=== PATIENT | male | born 1955 | race Caucasian/White ===

== ENCOUNTER → 2016-09-01 | Outpatient (CLI) | payer OTHER ==
[~2016-09-01] MED LIST: CMD3 PO; IBUP-1050 PO; IBUP-1459 PO; JUICE PLUS GUMMIES PO; LOVENOX; MULT-506 PO; PANT40TA PO; PRLSR20 PO; WARF5TAB7 PO
--- NOTE | 2016-09-01 09:31 | DIAGNOSTIC IMAGING REPORT ---
CT OF THE CHEST WITHOUT IV CONTRAST CLINICAL HISTORY: Interstitial lung disease. Follow-up study. COMPARISON STUDY: Chest CT February 19, 2016. CT DOSE: 252.15 mGy.cm TECHNIQUE: Axial images of the chest were obtained without IV contrast. Images were reviewed in the axial, sagittal, and coronal planes. IV contrast was not administered for this examination. FINDINGS: The size of the heart is normal. No pericardial effusion. A moderately large subcarinal lymph node measuring 1.8 cm in short axis diameter is similar to chest CT of February 19, 2016. The prominent hilar nodes shown on prior exam are not well visualized on this unenhanced exam. There is lower lobe predominant groundglass opacity with traction bronchiectasis. Note is made of a 3.3 x 1.2 cm subpleural irregular density within the posterior basilar segment of the right lower lobe shown on image 268 of 331. This has slightly increased in size since CT of February 19, 2016 when it measured 2.8 x 0.9 cm. There are calcifications within this abnormality. There is associated apparent bronchial occlusion. There are scattered additional tiny nodules which are similar to prior exam. No suspicious osseous lesions are present. There is a 1.2 cm cyst within the upper pole of the right kidney. Mild esophageal dilatation is unchanged. IMPRESSION: 1. Mild increase in size of the 3.3 x 1.2 cm subpleural irregular opacity within the right lower lobe since CT of February 19, 2016. While indeterminate, the interval growth raises the possibility of a neoplasm and is the diagnosis of exclusion. An organizing pneumonia or atelectasis is within the differential. Tissue sampling is recommended. 2. No change in size of a moderately enlarged subcarinal lymph node. This could be related to interstitial lung disease but is indeterminate. 3. Lower lobe predominant groundglass opacity with traction bronchiectasis consistent with interstitial lung disease. This suggests a NSIP pattern. Slight progression since exam of February 19, 2016. This finding, in conjunction with esophageal dilatation, raises the possibility of scleroderma. Electronically signed by: Quan Menchaca M.D. 09/01/2016 9:29 AM Dictated Date/Time: 09/01/2016 8:58 AM
== END | disposition home or self-care (01) ==
LOC: C.CTS 08:47
PROVIDERS: ATTEND Internal Medicine Pulmonary Disease
DX: J84.9 Interstitial pulmonary disease, unspecified (principal)

== ENCOUNTER → 2016-10-06 | Outpatient (CLI) | payer OTHER ==
--- NOTE | 2016-10-06 09:30 | DIAGNOSTIC IMAGING REPORT ---
(BARIUM SWALLOW) ESOPHAGUS CLINICAL HISTORY: DYSPHAGIA COMPARISON STUDY: None. FLUOROSCOPY TIME: 0.8 minutes. 11 images submitted. FINDINGS: The patient aspirated during the initial swallows of barium. Therefore, the study was terminated early. The esophagus appears to be normal in course and caliber. No hiatus hernia. The contours of the hypopharynx were not well evaluated. IMPRESSION: The study was terminated early due to aspiration of barium during the examination. Recommend follow-up video swallow for further evaluation. Electronically signed by: Yunior Estrada M.D. 10/06/2016 9:28 AM Dictated Date/Time: 10/06/2016 9:27 AM
== END | disposition home or self-care (01) ==
LOC: C.RAD 08:33
PROVIDERS: ATTEND Physician Assistant
DX: R13.10 Dysphagia, unspecified (principal)

== ENCOUNTER → 2016-10-18 | Outpatient (CLI) | payer OTHER ==
--- NOTE | 2016-10-18 12:41 | DIAGNOSTIC IMAGING REPORT ---
PET/CT SKULL-THIGH CLINICAL HISTORY: PULMONARY NODULE COMPARISON STUDY: Chest CT dated 09/01/2016 FINDINGS: The patient was injected with 10.3 mCi of F-18 labeled FDG. Findings standard induction phase, PET/CT scanning was performed from the skull base the upper thigh region. Activity within neck is felt to be physiologic. With the chest, there is an FDG avid 2 cm left paratracheal lymph node with an SUV maximum of 2.8. There is an FDG avid right paratracheal lymph node with SUV maximum of 3. There is an FDG avid 17 mm subcarinal lymph node with SUV maximum of 3.5. The recently described 3.3 x 1.2 cm right lower lobe pleural-based opacity is minimally FDG avid with SUV maximum of 2.2. The patient's lower lobe groundglass dependent opacities are also mildly FDG avid. Within the abdomen and pelvis, there is physiologic urinary tract and bowel activity. There is no FDG avid hepatic or adrenal masses. There is no FDG avid lymphadenopathy. There are no suspicious FDG avid skeletal lesions. IMPRESSION: 1. Mildly FDG avid mediastinal lymphadenopathy, demonstrating SUV maximum of up to 3.5. These could be either inflammatory or neoplastic. 2. Minimally FDG avid 3 cm right lower lobe pleural-based opacity with SUV maximum of 2.2. This could be either inflammatory or neoplastic. 3. Lower lung zone dependent interstitial lung disease which is minimally FDG avid 4. No evidence of pathologic FDG activity within the abdomen or pelvis Electronically signed by: Chaitanya Zhao M.D. 10/18/2016 12:40 PM Dictated Date/Time: 10/18/2016 12:29 PM
== END | disposition home or self-care (01) ==
LOC: C.PET 08:31
PROVIDERS: ATTEND Physician Assistant
DX: R91.1 Solitary pulmonary nodule (principal)

== ENCOUNTER → 2016-10-21 | Outpatient (CLI) | payer OTHER ==
--- NOTE | 2016-10-21 13:17 | DIAGNOSTIC IMAGING REPORT ---
VIDEO SWALLOW HISTORY: Aspiration DYSPHASIA TECHNIQUE: Video fluoroscopic evaluation of swallowing was performed in the AP and lateral projections by the speech pathology staff. The patient is fed nectar-thick and thin liquid barium, a barium coated wafer, and barium pudding. FLUOROSCOPY TIME: 4 minutes. COMPARISON STUDY: 10/06/2016 FINDINGS: Moderate oral and hypopharyngeal dysmotility. Trace amount of penetration/thicker liquids. Aspiration with thicker liquids. No significant aspiration with thin liquids. IMPRESSION: 1. Slightly improved exam compared to the prior study. Trace aspiration with thicker liquids. 2. Please see the speech pathologist report for detailed findings and recommendations. Electronically signed by: Jaime Sams M.D. 10/21/2016 1:16 PM Dictated Date/Time: 10/21/2016 1:13 PM
--- NOTE | 2016-10-21 16:26 | SWALLOWING EVALUATION ---
HISTORY: This 61 year-old man was referred for a VFSS at [facility] after aspirating during a barium swallow on 10/06/2016 in order to rule out aspiration. The patient has a PMH significant for CREST syndrome, acute pericarditis, DVT, scleroderma, and Raynaud's disease. Currently the patient's diet level is regular. Patient reported needing to alternate bites of food with liquids and can feel the liquids helping to clear food from his esophagus. He reported to have more difficulty with certain items (e.g., hamburger) and stated that these problems have been increasing over the last twenty years. PROCEDURE: The patient was seen in the Radiology Department of [facility] for the VFSS. Cursory examination of the oral cavity revealed upper dentures and lower implants. Movement of the articulators was WNL. The patient was seated on a stool and was viewed in both the Anterior-Posterior (A-P) and Lateral planes. Volitional phonation exercises completed in the A-P plane revealed bilateral vocal fold movement and vocal intensity within functional limits. In the lateral plane, the patient was given the following boluses: 1 tsp. thin liquid barium x 2, single swallow thin liquid barium self-presented from a cup x2, 1 tsp. nectar-thick liquid barium, single swallow nectar-thick liquid barium self-presented from a cup, 1 tsp. barium pudding, and 1 club cracker with barium pudding. The patient was then repositioned into the A-P plane and given the following boluses: 1 tsp. nectar-thick liquid barium and 1 tsp. barium pudding. RESULTS: Oral Stage: There was no labial escape. There was adequate tongue control holding the bolus between the tongue and palatal seal. Mastication was disorganized with pieces of bolus un-chewed. There was delayed initiation of tongue motion, but once it started the bolus was swallowed normally. At the initiation of pharyngeal swallow, bolus head was at the level of the valleculae. After first swallow, there was a collection of residue on the oral structures (along the tongue and palate). Multiple swallows were required to clear bolus orally. Pharyngeal Stage: Soft palate elevation was adequate. There was partial superior movement of thyroid cartilage/partial approximation of arytenoids to epiglottic petiole. There was partial anterior movement of the hyoid. There was partial inversion of the epiglottis which did not progress past the horizontal position. Laryngeal vestibular closure was incomplete, with a narrow column of contrast located in the vestibule at the height of the swallow. Pharyngeal stripping wave was diminished and pharyngeal contraction was incomplete. There was partial distention/duration of the PES opening. Tongue base retraction was inadequate with a wide column of contrast between tongue base and posterior wall. There was a majority of contrast within or on pharyngeal structures (valleculae) after the swallow. Patient aspirated small amounts and penetrated thin and nectar thick liquids. He presented with a sensory response in the form of a light throat clear. This appeared to be effective in clearing the aspiration. However, He is at high risk for aspiration due to impaired laryngeal elevation, hyoid excursion, epiglottic movement, tongue base retraction, and inadequate laryngeal closure. Approximately four swallows were required to clear residue from the valleculae. A chin tuck was attempted to aid in tongue base retraction and laryngeal closure, however, patient then struggled to move the bolus towards the posterior oral cavity. Chin tuck is considered to be ineffective for improving swallow. A liquid wash was used to clear bolus residue from the oral and pharyngeal cavities. This cleared some of the pharyngeal residue, but not all. Esophageal Stage: There was mild distal esophageal retention. SUMMARY/RECOMMENDATIONS: This patient presents with moderate oral-pharyngeal dysphagia characterized by penetration of thin and nectar thick liquids with scant amounts of aspiration. The patient, however, appears to be tolerating the aspiration (prior to this episode) and is active. In addition, the patient presents with s/s esophageal dysfunction. The following is recommended: 1. Dental soft, Slippery diet: Choose foods that are loose (low viscosity), moist, and slippery. Avoid foods that are dry, thick, pasty, and doughy. Use condiments as needed to make food slippery 2. Aspiration precautions: patient should be seated upright during and 30 minutes after meals. No straws. HOB elevated to at least 30 degrees at all times, to include while asleep. Alternate bites of food and sips of liquid. 3. Stringent oral care to include brushing all of the surfaces of the mouth and tongue, prior to and after meals. Also complete oral care prior to bed. This will reduce the amount of oral bacteria that can be aspirated in saliva. 4. Patient may benefit from outpatient speech therapy for swallowing exercises, and further education/training as needed on diet and safe swallow strategies. Rehab potential is guarded. A summary of the results and recommendations was discussed with patient and understanding was verbalized with the patient immediately following the study. Verbal and written education was provided regarding a slippery diet, with verbal understanding as well. Thank you for referral of this patient. Please contact me at if any additional information is needed. Lizzie Caicedo B.A. [employer] Clinician
== END | disposition home or self-care (01) ==
LOC: C.RAD 11:07
PROVIDERS: ATTEND Physician Assistant
DX: R13.10 Dysphagia, unspecified (principal)

== ENCOUNTER → 2017-04-05 | Day surgery (SDC) | payer OTHER ==
[2017-03-28 14:17] VITALS: BMI 19.0
[2017-03-28 14:40] LABS: BASO % 0.2 %; BASO ABS # 0.03 K/uL (0-0.2); COMPLETE YES; EOS % 2.1 %; HEMATOCRIT 37.4 % (42-52); IG% 0.3 %; LYMPH % 12.2 %; LYMPH ABS # 1.53 K/uL (1.2-3.4); MEAN CELL VOLUME 87.6 fL (80-100); MEAN CORPUSCULAR HEMOGLOBIN 29.3 pg (25-34); MEAN CORPUSCULAR HGB CONC 33.4 g/dl (32-36); MEAN PLATELET VOLUME 9.4 fL (7.4-10.4); NEUT % 74.2 %; PLATELET COUNT 496 K/uL (130-400); RED BLOOD COUNT 4.27 M/uL (4.7-6.1); WHITE BLOOD COUNT 12.51 K/uL (4.8-10.8)
[2017-03-28 14:50] LABS: INR 1.7 (0.9-1.1); PARTIAL THROMBOPLASTIN RATIO 1.4; PROTHROMBIN TIME (PATIENT) 18.1 SECONDS (9.0-12.0)
--- NOTE | 2017-03-28 15:04 | PAT Medication Instructions ---
Service Date Mar 28, 2017. Current Home Medication List Ibuprofen (Motrin), 400 MG PO HS PRN for Pain Omeprazole (Prilosec), 20 MG PO BID Warfarin Sod (Jantoven), 5 MG PO HS [Juice Plus Gummies ], 1 DOSE PO UD Medication Instructions For Your Scheduled Surgery -Contact your surgeon for instructions for: Ibuprofen (Motrin), 400 MG PO HS PRN for Pain - Contact your prescriber for instructions for: Warfarin Sod (Jantoven), 5 MG PO HS - Hold the following medications the morning of surgery: [Juice Plus Gummies ], 1 DOSE PO UD - Take the following medications the morning of surgery with a sip of water: Omeprazole (Prilosec), 20 MG PO BID - Take the following medications as scheduled the night before surgery: Omeprazole (Prilosec), 20 MG PO BID If you have any questions please call us at [phone] or [phone] or [phone]
[2017-03-28 16:45] LABS: BUN/CREATININE RATIO 23.2 (10-20); CALCIUM 8.7 mg/dl (8.5-10.1); CREATININE 0.9 mg/dl (0.60-1.40); POTASSIUM 4.5 mmol/L (3.5-5.1)
[~2017-04-05] VITALS: Ht 180.3 cm; Wt 64.7 kg
[~2017-04-05] MED LIST changes: +ARTIFICIAL TEARS OP OINT 3.5 GM TUBE ONE; +ATROPINE SULFATE 0.1 MG/ML 5ML SYR IV PRN; -CMD3 PO; +DEXAMETHASONE SOD INJ 4 MG/ML VIAL ONE; +EpHEDrine SULFATE 50MG/5ML SYR ONE; +EpHEDrine SULFATE INJ 50 MG/ML AMP IV PRN; +FENTANYL CITRATE INJ 50 MCG/1 ML 2 ML VIAL IV PRN; +FENTANYL CITRATE INJ 50 MCG/1 ML 2 ML VIAL ONE; +GLYCOPYRROLATE INJ 0.2 MG/ML VIAL ONE; -IBUP-1050 PO; +LACTATED RINGER'S 1000ML 1,000 ML IV SCH; +LIDOCAINE HCL 2% 2 ML VIAL (20MG/ML) ONE; +MIDAZOLAM HCL 1 MG/ML 2ML VIAL ONE; -MULT-506 PO; +NEOSTIGMINE METHYLSULFATE 5 MG/5 ML SYR ONE; +ONDANSETRON INJ 2 MG/ML 2 ML VIAL IV PRN; +ONDANSETRON INJ 2 MG/ML 2 ML VIAL ONE; -PANT40TA PO; +PROPOFOL IV EMULSION 10 MG/ML 20 ML VIAL IV ONE; +ROCURONIUM BROMIDE 10 MG/ML 5 ML VIAL IV ONE
--- NOTE | 2017-04-05 07:03 | History and Physical ---
History & Physical Date of Service Apr 05, 2017. History & Physical Reason for visit: EBUS w/ ENB HPI: Patient is a 61-year-old male presenting to [facility] today for EBUS w/ENB. The patient has history of scleroderma/interstitial lung disease with multiple pulmonary infiltrates/nodules. The patient is suspected to have possible chronic aspiration and reactive mediastinal adenopathy secondary to scleroderma , but ultimately needs further evaluations in regards to large mediastinal adenopathy and changes in the bilateral lower lobes, especially the right lower lobe. His CT images were reviewed by me today. It is noted that he has progressive increase in size of a 3.9 x 1.5 cm irregular subpleural opacity within the posterior basilar segment of the right lower lobe. The interval growth was noted on radiographic analysis to be suspicious for neoplasm. Significant increase in size of the right paratracheal lymph node, mediastinal, and right hilar lymph nodes also were noted. Redemonstration of lower lobe prominent ground-glass opacities, bronchiectasis, and esophageal dilatation were also noted which likely are consistent with the patient's history of scleroderma. PFT's were completed on 03/23/2016: FVC was 3.92/78% predicted FEV1 2.95/78% predicted FEV1/FVC ratio 75% TLC 0.74/92% predicted DLCOunc 55% predicted DL/VA 3.65/74% predicted no significant change with bronchodilator administration Past medical history: Acute osteomyelitis of the hand, aspiration, dysphagia, interstitial lung disease, mediastinal lymphadenopathy, MRSA, pulmonary nodule, scleroderma, crest syndrome, DVT, malignant neoplasm of the skin, Raynaud's Past surgical history: Cardiac catheterization, sinus surgery Social history: Never smoker Allergies: Bactrim Current medications: Omeprazole 20 mg twice daily Warfarin Physical exam: General: Patient is awake, alert, cooperative, and in no acute distress. HEENT: Normocephalic and atraumatic. Eyes are anicteric and non-erythematous. EOMI c PERRLA. Hearing intact and without difficulty. Nose appears normal and without drainage. Trachea midline. Thyroid appears normal, and neck is supple. Lungs: No respiratory distress. No accessory muscle use. Heart: Regular rate and rhythm. Musculoskeletal: Gait normal and without difficulty. Freely moving extremities during exam. Neuro: Alert. CN II-XII grossly intact. Sensation and motor function grossly intact. Assessment and plan: Right lower lobe subpleural opacity, mediastinal, hilar, and paratracheal lymphadenopathy, and bronchiectasis. Plan for EBUS w/ENB today for further evaluation of these findings.
[2017-04-05 08:11] VITALS: BP 109/69; TEMP 36.6; Ht 180.3 cm; Wt 64.7 kg
[2017-04-05 08:37] LABS: INR 1.1 (0.9-1.1); PARTIAL THROMBOPLASTIN RATIO 1.2; PROTHROMBIN TIME (PATIENT) 12.1 SECONDS (9.0-12.0)
--- NOTE | 2017-04-05 10:15 | History & Physical Bridge Note ---
H&P Re-Evaluation Bridge Note: I have examined the patient, reviewed the History & Physical and in the interval since the performance of the History & Physical I have noted the following changes of clinical significance: No changes noted
--- NOTE | 2017-04-05 11:35 | Discharge Instructions ---
Discharge Instructions Date of Service Apr 05, 2017. 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 Current Hospital Diet Patient's current hospital diet: Discharge Diet Recommended Diet: Regular Diet Procedures Procedures Performed: Flexible Bronchoscopy Endobronchial ultrasound, , Trans-tracheal/bronchial Needle Aspiration, Bronchial Lavage, Pending Studies Studies pending at discharge: no Medical Emergencies . Who to Call and When: Medical Emergencies: If at any time you feel your situation is an emergency, please call 911 immediately. . Non-Emergent Contact Non-Emergency issues call your: Electorate Officer . . "Provider Documentation" section prepared by Gerson Zamarripa. . VTE Core Measure Inpt VTE Proph given/why not?: Treatment not indicated
--- NOTE | 2017-04-05 12:21 | Anesthesiology Progress Note ---
Anesthesia Post Op Note Date & Time Apr 05, 2017 at 12:21 Vital Signs Pain Intensity: 0 Vital Signs Past 12 Hours Date Time Temp Pulse Resp B/P (MAP) Pulse Ox O2 Delivery O2 Flow Rate FiO2 04/05/17 12:07 90 24 100 04/05/17 12:07 92 24 04/05/17 12:06 88/62 04/05/17 12:02 93 23 100 04/05/17 12:02 95 23 04/05/17 12:01 91/59 04/05/17 11:58 97 23 04/05/17 11:58 94 23 100 04/05/17 11:56 82/51 04/05/17 11:54 90/49 04/05/17 11:53 100 25 04/05/17 11:53 96 25 100 04/05/17 11:51 82/55 04/05/17 11:48 86 26 04/05/17 11:48 102 26 87/54 99 04/05/17 11:45 89/60 04/05/17 11:44 36.6 106 16 89/60 98 Oxymask 10 04/05/17 08:11 36.6 18 109/69 (82) Room Air Notes Mental Status: alert / awake / arousable, participated in evaluation Pt Amnestic to Procedure: Yes Nausea / Vomiting: adequately controlled Pain: adequately controlled Airway Patency, RR, SpO2: stable & adequate BP & HR: stable & adequate Hydration State: stable & adequate Anesthetic Complications: no major complications apparent
[2017-04-05 12:30] VITALS: BP 91/57; PULSE 91; TEMP 36.7; O2SAT 94
[2017-04-05 13:00] VITALS: BP 98/64; PULSE 104; O2SAT 91
[2017-04-05 13:30] VITALS: BP 107/65; PULSE 94; TEMP 36.5; O2SAT 91
--- NOTE | 2017-04-13 19:06 | Bronchoscopy Procedure Note ---
Bronchoscopy Procedure Note Procedure: Flexible-Bronchoscopy, EBUS, ENB, FNA,BAL Consent: Obtained through the patient placed into the chart Pre-Procedural Dx: Post-Procedural Dx: Analgesia: GETA Sedation: GETA Procedure: The Olympus video bronchoscope and EBUS scope were used for this procedure Initially the flexible bronchoscope was used for evaluation of the airways. An LMA Size ?? was used for this procedure and properly positioned Vocal Cords: Anatomically WNL Sub-Glottis & Trachea: Anatomically WNL Jeni: Anatomically within normal limits Right bronchial tree: Right mainstem bronchus: Anatomically within normal limits Right upper lobe: Anatomically within normal limits Bronchus intermedius: Anatomically within normal limits Right middle lobe: Anatomically within normal limits Right lower lobe: Anatomically within normal limits Findings: No significant findings noted Left bronchial tree: Left mainstem bronchus: Anatomically within normal limits Left upper lobe: Anatomically within normal limits Lingula: Anatomically within normal limits Left lower lobe: Anatomically within normal limits Findings: No significant findings noted EBUS/RASHIDA: FNA Alda Stations: 7: # of passes 4R: # of passes 4L: # of passes BAL: RLL EBL: none Complications: None Follow-up: PACU
== END | disposition home or self-care (01) ==
LOC: C.ACU 07:31
PROVIDERS: ATTEND Internal Medicine Critical Care Medicine
DX: C77.1 Secondary and unspecified malignant neoplasm of intrathoracic lymph nodes (principal); I73.00 Raynaud's syndrome without gangrene; Z88.1 Allergy status to other antibiotic agents; Z98.890 Other specified postprocedural states; Z86.718 Personal history of other venous thrombosis and embolism; Z85.828 Personal history of other malignant neoplasm of skin

== ENCOUNTER 2017-04-21 05:43 | Day surgery (SDC) | payer OTHER ==
[~2017-04-21] VITALS: Ht 180.3 cm; Wt 65.0 kg
[~2017-04-21 05:43] MED LIST changes: -ARTIFICIAL TEARS OP OINT 3.5 GM TUBE ONE; -ATROPINE SULFATE 0.1 MG/ML 5ML SYR IV PRN; -DEXAMETHASONE SOD INJ 4 MG/ML VIAL ONE; +ENOX60IN SQ; -EpHEDrine SULFATE 50MG/5ML SYR ONE; -EpHEDrine SULFATE INJ 50 MG/ML AMP IV PRN; -FENTANYL CITRATE INJ 50 MCG/1 ML 2 ML VIAL IV PRN; -FENTANYL CITRATE INJ 50 MCG/1 ML 2 ML VIAL ONE; -GLYCOPYRROLATE INJ 0.2 MG/ML VIAL ONE; -IBUP-1459 PO; -JUICE PLUS GUMMIES PO; -LACTATED RINGER'S 1000ML 1,000 ML IV SCH; -LIDOCAINE HCL 2% 2 ML VIAL (20MG/ML) ONE; -LOVENOX; -MIDAZOLAM HCL 1 MG/ML 2ML VIAL ONE; -NEOSTIGMINE METHYLSULFATE 5 MG/5 ML SYR ONE; -ONDANSETRON INJ 2 MG/ML 2 ML VIAL IV PRN; -ONDANSETRON INJ 2 MG/ML 2 ML VIAL ONE; -PROPOFOL IV EMULSION 10 MG/ML 20 ML VIAL IV ONE; -ROCURONIUM BROMIDE 10 MG/ML 5 ML VIAL IV ONE
[2017-04-21] MEDS ORDERED: LACTATED RINGER'S 1000ML 1,000 ML IV SCH (06:00)
[2017-04-21 06:18] VITALS: BP 115/71; PULSE 85; TEMP 36.8; O2SAT 94; Ht 180.3 cm; Wt 65.0 kg
[2017-04-21 06:33] LABS: INR 1.1 (0.9-1.1); PARTIAL THROMBOPLASTIN RATIO 1.2; PROTHROMBIN TIME (PATIENT) 11.4 SECONDS (9.0-12.0)
[2017-04-21] MEDS ORDERED: ATROPINE SULFATE 0.1 MG/ML 5ML SYR IV PRN (07:00)
[2017-04-21] MEDS ORDERED: FENTANYL CITRATE INJ 50 MCG/1 ML 2 ML VIAL IV PRN (07:00)
[2017-04-21] MEDS ORDERED: ONDANSETRON INJ 2 MG/ML 2 ML VIAL IV PRN (07:00)
[2017-04-21] MEDS ORDERED: EpHEDrine SULFATE INJ 50 MG/ML AMP IV PRN (07:00)
[2017-04-21] MEDS ORDERED: SUCCINYLCHOLINE CHLORIDE 20 MG/ML 10 ML VIAL IV ONE (07:11)
[2017-04-21] MEDS ORDERED: PHENYLEPHRINE HCL INJ 10 MG/ML VIAL ONE (07:11)
[2017-04-21] MEDS ORDERED: PROPOFOL IV EMULSION 10 MG/ML 20 ML VIAL IV ONE (07:11)
[2017-04-21] MEDS ORDERED: DEXAMETHASONE SOD INJ 4 MG/ML VIAL ONE (07:11)
[2017-04-21] MEDS ORDERED: GLYCOPYRROLATE INJ 0.2 MG/ML VIAL ONE (07:11)
[2017-04-21] MEDS ORDERED: NEOSTIGMINE METHYLSULFATE 5 MG/5 ML SYR ONE (07:11)
[2017-04-21] MEDS ORDERED: EpHEDrine SULFATE INJ 50 MG/ML AMP ONE (07:11)
[2017-04-21] MEDS ORDERED: LIDOCAINE HCL 2% 2 ML VIAL (20MG/ML) ONE (07:11)
[2017-04-21] MEDS ORDERED: MIDAZOLAM HCL 1 MG/ML 2ML VIAL ONE (07:11)
[2017-04-21] MEDS ORDERED: FENTANYL CITRATE INJ 50 MCG/1 ML 2 ML VIAL ONE (07:11)
[2017-04-21] MEDS ORDERED: ONDANSETRON INJ 2 MG/ML 2 ML VIAL ONE (07:11)
--- NOTE | 2017-04-21 07:20 | Endo History and Physical ---
History & Physical Date of Service: Apr 21, 2017. Chief Complaint: Scleroderma, GERD, Mediastinal RAMONA Referring Physician: Dr. Solano History of Present Illness 61 yo CM who presents for mediastinoscopy with Dr. Cruz and EGD with myself for Scleroderma, GERD and Mediastinal Lymphadenopathy and NSCLC. Past Surgical History Hx Cardiac Surgery: Yes (CARDIAC CATH NO STENTS-2010) Hx Abdominal Surgery: No Hx Post-Op Nausea and Vomiting: No Hx Cancer Surgery: No Hx Thoracic Surgery: No Hx Orthopedic: Yes (BUNIONECTOMY R FOOT ) Hx Urinary Tract Surgery: No Social History Smoking Status: Never Smoker Hx Substance Use: No Hx Alcohol Use: Yes ("HARDLY EVER" ) Allergies Coded Allergies: Sulfamethoxazole w/Trimethoprim (Verified Allergy, Intermediate, ANAPHYLAXIS, 04/21/17) Swollen lips Current Medications Reported Home Medications Medications Dose Route/Sig Max Daily Dose Days Date Category Dose Instructions Lovenox (Enoxaparin Sodium) 60 Mg/0.6 Ml Inj 60 Mg SQ Q12H 04/19/17 Reported WILL FOLLOW INSTRUCTIONS GIVEN BY [facility] Jantoven (Warfarin Sodium) 5 Mg Tab 5 Mg PO HS 03/28/17 Reported PT HAS INSTRUCTIONS TO BRIDGE TO LOVENOX PER [facility] Prilosec (Omeprazole) 20 Mg Capcr 20 Mg PO BID 03/28/17 Reported Vital Signs Weight (Kilograms): 65.00 Height (Feet): 5 Height (Inches): 11 Date Time Temp Pulse Resp B/P (MAP) Pulse Ox O2 Delivery O2 Flow Rate FiO2 04/21/17 06:18 36.8 85 18 115/71 (86) 94 Room Air Physical Exam General Appearance: + thin, + pertinent finding (chronic ill appearing) Respiratory/Chest: Respiratory effort: no dyspnea Auscultation: decreased breath sounds (at bilateral bases) Cardiovascular: Heart Auscultation: RRR Abdomen: Bowel Sounds: normal Inspection & Palpation: soft, non-distended Liver: no hepatomegaly Hernia: none palpable Assessment and Plan Assessment: 61 yo CM who presents for mediastinoscopy with Dr. Cruz and EGD with myself for Scleroderma, GERD and Mediastinal Lymphadenopathy and NSCLC. Plan: Proceed with EGD.
[2017-04-21] MEDS ORDERED: ULT/50 PO (08:12)
--- NOTE | 2017-04-21 08:17 | GI REPORT ---
Procedure Date: 04/21/2017 7:35 AM Procedure: Upper GI endoscopy Indications: Gastro-esophageal reflux disease, Scleroderma Medicines: General Anesthesia Complications: No immediate complications. Estimated Blood Loss: Estimated blood loss: none. Procedure: Pre-Anesthesia Assessment: - Prior to the procedure, a History and Physical was performed, and patient medications and allergies were reviewed. The patient's tolerance of previous anesthesia was also reviewed. The risks and benefits of the procedure and the sedation options and risks were discussed with the patient. All questions were answered, and informed consent was obtained. Prior Anticoagulants: The patient last took Coumadin (warfarin) 7 days and Lovenox (enoxaparin) 1 day prior to the procedure. ASA Grade Assessment: III - A patient with severe systemic disease. After reviewing the risks and benefits, the patient was deemed in satisfactory condition to undergo the procedure. After obtaining informed consent, the endoscope was passed under direct vision. Throughout the procedure, the patient's blood pressure, pulse, and oxygen saturations were monitored continuously. The Scope was introduced through the mouth, and advanced to the second part of duodenum. The upper GI endoscopy was accomplished without difficulty. The patient tolerated the procedure well. Findings: Mildly severe esophagitis with no bleeding was found. One mild benign-appearing, intrinsic stenosis was found. And was traversed. The stomach was normal. The examined duodenum was normal. Impression: - Mildly severe reflux esophagitis. - Benign-appearing esophageal stenosis. - Normal stomach. - Normal examined duodenum. - No specimens collected. Recommendation: - Proceed with planned mediastinoscopy surgery today. Yfn Barboza DO 04/21/2017 8:16:33 AM This report has been signed electronically. Note Initiated On: 04/21/2017 7:35 AM I attest to the content of the Intraoperative Record and orders documented therein, exceptions below
[2017-04-21] MEDS ORDERED: SURGICEL ABSORB HEMOSTAT 2IN X 14IN TOP ONE (08:47)
[2017-04-21] MEDS ORDERED: TRAMADOL HCL 50 MG TAB PO PRN (10:15)
--- NOTE | 2017-04-21 10:19 | Discharge Instructions ---
Discharge Instructions Date of Service Apr 21, 2017. Visit Reason for Visit: Mediastinal Lymphadenopathy Discharge Discharge Diagnosis / Problem: Mediastinal Lymphadenopathy Discharge Goals Goal(s): Learn about illness Activity Recommendations Activity Limitations: resume your previous activity (in 24 hours) [address] if taking ultram. Anesthesia . Post Anesthesia Instructions: If you have had General Anesthesia or IV Sedation: * Do not drive today. * Resume driving when surgeon permits. * Do not make important decisions or sign legal documents today. * Call surgeon for: 1. Temperature elevations greater than 101 degrees F. 2. Uncontrollable pain. 3. Excessive bleeding. 4. Persistent nausea and vomiting. 5. Medication intolerance (nausea, vomiting or rash). * For nausea and vomiting use only clear liquids such as: tea, soda, bouillon until nausea subsides, then gradually increase diet as tolerated. * If you have any concerns or questions, call your surgeon's office. If physician is unavailable and it is an emergency, call 911 or go to the nearest emergency room. . Instructions / Follow-Up Instructions / Follow-Up 1. Keep your scheduled appointment with Dr. Cruz on April 28 @ 1:30. Diet Recommendations Recommended Home Diet: resume previous diet Procedures Procedures Performed: 1.Esophagogastroduodenoscopy - 2.Video Mediastinoscopy with Biopsy - Pending Studies Studies pending at discharge: no Medical Emergencies . Who to Call and When: Medical Emergencies: If at any time you feel your situation is an emergency, please call 911 immediately. . Non-Emergent Contact Non-Emergency issues call your: Surgeon Call Non-Emergent contact if: you have a fever, your pain is not controlled, wound has increased drainage . . "Provider Documentation" section prepared by Josh Pate. .
--- NOTE | 2017-04-21 10:59 | Anesthesiology Progress Note ---
Anesthesia Post Op Note Date & Time Apr 21, 2017 at 10:58 Vital Signs Pain Intensity: 0 Vital Signs Past 12 Hours Date Time Temp Pulse Resp B/P (MAP) Pulse Ox O2 Delivery O2 Flow Rate FiO2 04/21/17 10:50 72 20 104/64 94 Room Air 04/21/17 10:40 67 14 102/58 100 Oxymask 10 04/21/17 10:30 64 14 109/69 100 Oxymask 10 04/21/17 10:21 36. 70 14 113/71 100 Oxymask 10 04/21/17 06:18 36.8 85 18 115/71 (86) 94 Room Air Notes Mental Status: alert / awake / arousable, participated in evaluation Pt Amnestic to Procedure: Yes Nausea / Vomiting: adequately controlled Pain: adequately controlled Airway Patency, RR, SpO2: stable & adequate BP & HR: stable & adequate Hydration State: stable & adequate Anesthetic Complications: no major complications apparent
--- NOTE | 2017-04-21 11:17 | DIAGNOSTIC IMAGING REPORT ---
SINGLE VIEW CHEST CLINICAL HISTORY: Status post mediastinoscopy. FINDINGS: 2 AP, portable, upright chest radiographs are compared to study dated 11/08/2010 and correlated with chest CT dated 03/11/2017. The examination is degraded by portable technique and patient rotation. The heart is enlarged and there is atherosclerotic calcification of the thoracic aorta. The pulmonary vasculature is noncongested. Chronic interstitial thickening and subpleural reticulation are similar to previous. Findings suggest chronic residual lung disease. Bibasilar airspace opacities are nonspecific. No pneumothorax is seen. The skeletal structures are osteopenic. The bony thorax is grossly intact. IMPRESSION: 1. No pneumothorax is clearly identified post procedure. 2. Cardiomegaly without radiographic evidence of congestive failure. 3. Changes of chronic interstitial lung disease are similar to previous. 4. Bibasilar airspace opacities are nonspecific but appear increased from prior examinations. This could be related to chronic lung disease, atelectasis, and/or an infectious/inflammatory pneumonitis. Clinical correlation will be required. Electronically signed by: Rudy Colin M.D. 04/21/2017 11:16 AM Dictated Date/Time: 04/21/2017 11:09 AM
--- NOTE | 2017-04-21 11:30 | OPERATIVE REPORT ---
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 PROCEDURE: Video mediastinoscopy with biopsy. SURGEON: Dr. Cruz. CONE WINDER: Arian Pate PA-C (Arian Pate acted as cable splicer assistant and was instrumental in holding the scope and passing instruments and closed the incision at the conclusion of the case. He was there for the entirety of the case.). SPECIFICS OF PROCEDURE AND FINDINGS: Mr. 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 He was found to have a mass in his chest and it was determined that he had a nonsmall cell lung carcinoma. An endobronchial ultrasound was done but there was not enough tissue to get a definitive cell type, diagnosis or immunohistochemical stains or molecular diagnostic testing. For this reason, I was asked to perform video mediastinoscopy to get more tissue. In addition, the patient has signs and symptoms and findings on CT suggestive of involvement of his esophagus with scleroderma. It was elected to proceed with an upper endoscopy by Dr. Yfn Barboza to be followed by video mediastinoscopy in the same setting. After Dr. Barboza did an uncomplicated upper endoscopy and saw a mild stricture as the only abnormality of the distal esophagus, we readied him and did a video mediastinoscopy. I biopsied some abnormal looking tissue and got back some granulomas. I actually reviewed the slides with Dr. Pennington and Dr. Mondragon. They did not feel there was enough tissue, so I opened the incision back and took more tissue from the right level 4 and this was diagnostic material. We really got into no bleeding. I only biopsied the right side, right level 2 and right level 4 nodes. He tolerated it well. PROCEDURE: The patient was brought to the operating room and laid in the supine position. General anesthesia induced and endotracheal intubation was performed. I had a bit of difficulty in extending his neck and I was not aggressive with this. After prepping and draping in the usual sterile fashion, given prophylactic antibiotics and calling appropriate timeout, incision was made one fingerbreadth above the sternal notch. A transverse incision was then opened with the cautery. Strap muscles were . We went below the thyroid isthmus developed this area bluntly and then I brought the video mediastinoscope in, immediately came up on a level 2 node which I biopsied several times. We got into very little bleeding with this although I did use the cautery suction to control this bleeding. Going further down the level 4 node was huge. I biopsied some of this that appeared to be necrotic to me and sent it to the lab. Bleeding was easily controlled and I felt comfortable enough that I closed by using 3-0 Vicryl and closed the strap muscles and 4-0 Monocryl to close the skin. We did not really get an answer and then Dr. Mondragon called back with the frozen section and said he did not see evidence of cancer, although he saw some atypical cells. He was freezing more tissue so I left the operating room and went down to his office and reviewed the films with Dr. Pennington and Dr. Mondragon. This did not show evidence of obvious carcinoma and I was afraid we would not have enough material to do immunohistochemical staining and molecular analysis. For this reason, I went back to the operating room, opened up the incision and took a large amount of tissue. Frozen section of this showed it to be frankly cancer and we had plenty of tissue. Bleeding was controlled with cautery. This was all the right level 4 node. After we had meticulously stopped the bleeding and then irrigated it out and really saw no evidence of bleeding. The scope was then removed slowly and 3-0 Monocryl was used in a running fashion to close the strap muscles. 4-0 Monocryl was used in a running subcuticular fashion to approximate the wound edges. The patient tolerated it quite well. Antimicrobial dressing was placed on this and was transported to the postanesthesia care unit in stable condition. I attest to the content of the Intraoperative Record and any orders documented therein. Any exception s are noted below.
[2017-04-21 11:40] VITALS: BP 101/62; PULSE 68; TEMP 36.4; O2SAT 98
[2017-04-21] MEDS ORDERED: NURSING VERBAL MED ORDER ONE (12:15)
[2017-04-21 12:17] VITALS: BP 93/61; PULSE 68; O2SAT 94
[2017-04-21 12:45] VITALS: BP 94/59; PULSE 76; TEMP 37; O2SAT 97
[2017-04-21] MEDS ORDERED: IBUPROFEN 200 MG/10 ML UDC PO ONE (12:45)
== END 2017-04-21 13:35 | disposition home or self-care (01) ==
LOC: C.ACU 05:43
PROVIDERS: ATTEND Surgery
DX: K21.0 Gastro-esophageal reflux disease with esophagitis (principal); K22.2 Esophageal obstruction; M34.9 Systemic sclerosis, unspecified; C34.90 Malignant neoplasm of unspecified part of unspecified bronchus or lung; R59.0 Localized enlarged lymph nodes; Z79.01 Long term (current) use of anticoagulants; Z79.899 Other long term (current) drug therapy